=== PATIENT | female | born 1970 | race Caucasian/White ===

== ENCOUNTER 2021-06-24 11:46 | Outpatient (REF) | payer OTHER, SELFPAY ==
[2021-06-24 12:44] LABS: Influenza A PCR NEGATIVE (Negative); Influenza B PCR NEGATIVE (Negative); Resp Syncy Virus RNA Qual PCR NEGATIVE (Negative); SARS COV2 PCR INHOUSE NEGATIVE (Negative)
== END 2021-06-24 11:47 | disposition home or self-care (01) ==
LOC: HO.LNP 11:46
PROVIDERS: Visit Provider Family Medicine
DX: B34.9 Viral infection, unspecified (principal); Z20.822 Contact with and (suspected) exposure to COVID-19
CPT/HCPCS: 0241U